=== PATIENT | male | born 1960 | race Caucasian/White ===

== ENCOUNTER → 2024-10-24 | Day surgery (SDC) | payer OTHER ==
[~2024-10-24] VITALS: Ht 165.1 cm; Wt 75.7 kg
[~2024-10-24] MED LIST: ACETAMINOPHEN 325MG TABLET PO PRN; ASPI-1497 PO; FENTANYL CITRATE/PF 50MCG/ML 2ML VIAL ONE; GARLIC PO; HEPARIN 1000 UNITS/ML 10ML ONE; IODIXANOL 320MG/ML 100 ML BOTTLE IV ONE; LIDOCAINE HCL 1% 10 MG/ML 10ML VIAL ONE; LISI20TA31 PO; MIDAZOLAM HCL 2 MG/2 ML VIAL ONE; OMEG-97 PO; ONDANSETRON HCL 4MG/2ML INJ IV PRN; OXYB-52 PO; TAMS-11 PO
[2024-10-24] MEDS: SODIUM CHLORIDE 0.45% 500 ML IV ONE (07:54)
== END | disposition home or self-care (01) ==
LOC: CCL 06:40
PROVIDERS: ATTEND Specialist
DX: R07.89 Other chest pain (principal); R94.39 Abnormal result of other cardiovascular function study; I25.10 Atherosclerotic heart disease of native coronary artery without angina pectoris; I10 Essential (primary) hypertension; E78.5 Hyperlipidemia, unspecified; I25.2 Old myocardial infarction; I44.4 Left anterior fascicular block; Z82.49 Family history of ischemic heart disease and other diseases of the circulatory system; Z83.49 Family history of other endocrine, nutritional and metabolic diseases; Z79.82 Long term (current) use of aspirin; Z79.899 Other long term (current) drug therapy; Z98.890 Other specified postprocedural states
CPT/HCPCS: 93458; 93005; C1893; C1769 ×2; J3010; Q9967; J1644 ×2; J2003; J2250; A4663; 99152; 99153; G0500